=== PATIENT | female | born 1955 | race Caucasian/White ===

== ENCOUNTER 2018-12-23 17:03 | Emergency (ER) | payer SELFPAY ==
[~2018-12-23] VITALS: Ht 149.9 cm; Wt 66.2 kg
[2018-12-23 17:46] VITALS: Ht 149.9 cm; Wt 66.2 kg
[2018-12-23 21:55] VITALS: BP 128/76
== END 2018-12-23 21:52 | disposition home or self-care (01) ==
LOC: ED 17:03
DX: J06.9 Acute upper respiratory infection, unspecified (principal); J40 Bronchitis, not specified as acute or chronic; I10 Essential (primary) hypertension; E03.9 Hypothyroidism, unspecified
CPT/HCPCS: 87804